=== PATIENT | female | born 1985 | race Caucasian/White ===

== ENCOUNTER 2017-08-11 12:50 | Outpatient (CLI) | payer BC, OTHER | END 2017-08-11 12:51 | disposition home or self-care (01) | LOC: DTY/OP 12:50 | PROVIDERS: ATTEND Specialist | DX: Z01.818 Encounter for other preprocedural examination (principal); E66.01 Morbid (severe) obesity due to excess calories | CPT/HCPCS: 97802 ==

== ENCOUNTER 2017-08-25 16:00 | Inpatient (IN) | payer OTHER ==
[2017-09-02] MEDS ORDERED: Bupivacaine HCl 0.5%/Epinephrine 1:200,000/PF 30 ml Vial ONE (06:34)
[2017-09-02] MEDS ORDERED: Bupivacaine/Epinephrine 0.25% 30 ML VIAL ONE ×2 (06:36→07:53)
[2017-09-02] MEDS ORDERED: Fentanyl 100 MCG/2 ML VIAL ONE ×2 (07:03→09:41)
[2017-09-02] MEDS ORDERED: Promethazine HCl 12.5 MG SUPP ONE (07:03)
[2017-09-02] MEDS ORDERED: HYDROmorphone 0.5 MG/0.5 ML SYRINGE ONE (07:03)
[2017-09-02] MEDS ORDERED: Midazolam HCl 2 mg/2 ml Vial ONE ×2 (07:03→07:12)
[2017-09-02] MEDS ORDERED: Promethazine HCl 25 MG/ML VIAL ONE (07:04)
[2017-09-02] MEDS ORDERED: Scopolamine 1.5 mg/72 hour Patch ONE (07:06)
[2017-09-02] MEDS ORDERED: Heparin 5,000 UNITS/ML VIAL ONE (07:06)
[2017-09-02] MEDS ORDERED: Ketorolac Tromethamine 30 MG/ML VIAL ONE (07:06)
[2017-09-02] MEDS ORDERED: cefOXitin 2 GM VIAL ONE (07:06)
[2017-09-02] MEDS ORDERED: Sodium Chloride 0.9% 100 ML ONE (07:06)
[2017-09-02] MEDS ORDERED: HYDROmorphone 2 MG/ML VIAL SLOW IVP PRN (09:02)
[2017-09-02] MEDS ORDERED: Promethazine HCl 25 MG/ML VIAL IM PRN (09:02)
[2017-09-02] MEDS ORDERED: Promethazine HCl 25 MG/ML VIAL SLOW IVP PRN (09:02)
[2017-09-02] MEDS ORDERED: Ondansetron HCl/PF 4 MG/2 ML Vial IVP PRN (09:02)
[2017-09-02] MEDS ORDERED: D5 1/2 NS w/20 mEq KCL 1,000 ML ONE (09:37)
[2017-09-02] MEDS ORDERED: Dextrose 50% Abboject 50 ML SYRINGE SLOW IVP PRN (10:41)
[2017-09-02] MEDS ORDERED: Dextrose 5% in Water 1,000 ML IV PRN (10:41)
[2017-09-02] MEDS ORDERED: Hydrocodone-Acetamin 15 ML UDCUP PO PRN (10:41)
[2017-09-02] MEDS ORDERED: hydrALAZINE 20 MG/ML VIAL SLOW IVP PRN (10:41)
[2017-09-02] MEDS ORDERED: diphenhydrAMINE 50 MG/ML VIAL IVP PRN (10:41)
[2017-09-02] MEDS: Ketorolac Tromethamine 30 MG/ML VIAL IVP SCH ×2 (11:37→17:56)
[2017-09-02] MEDS: D5 1/2 NS w/20 mEq KCL 1,000 ML IV SCH ×3 (11:38→17:58)
[2017-09-02 11:56] VITALS: BMI 37.0
[2017-09-02] MEDS: Ondansetron HCl/PF 4 MG/2 ML Vial IVP PRN (13:31)
[2017-09-02] MEDS: Morphine 4 MG/ML VIAL SLOW IVP PRN ×2 (17:57→22:07)
[2017-09-02] MEDS: Promethazine HCl 25 MG/ML VIAL IM PRN ×2 (17:58→22:07)
[2017-09-02] MEDS ORDERED: Enoxaparin Sodium 40 MG/0.4 ML SYRINGE SC SCH (21:00)
[2017-09-03] MEDS: Ketorolac Tromethamine 30 MG/ML VIAL IVP SCH ×3 (00:54→12:21)
[2017-09-03 05:54] LABS: #Basophils 0.1 thou/uL (0.0-0.2); #Lymphocytes 2.7 thou/uL (1.20-3.40); #Neutrophils 8.8 thou/uL (1.40-6.50); %Basophils 0.5 % (0.0-1.0); %Eosinophils 0.1 % (0.0-10.0); %Lymphocytes 21.3 % (21.0-51.0); %Neutrophils 70.2 % (42.0-75.0); Hemoglobin 12.4 g/dL (12.0-16.0); Mean Corpuscular HGB CONC 33.1 g/dL (32.0-36.0); Mean Corpuscular Hemoglobin 28.1 pg (27.0-31.0); Mean Corpuscular Volume 84.9 fL (78.0-98.0); Mean Platelet Volume 8.9 fL (7.4-10.4); Platelet Count 213 thou/uL (130-400); RBC Distribution Width 12.5 % (11.5-14.5); Red Blood Cell (RBC) Count 4.42 mill/uL (4.20-5.40); White Blood Cell (WBC) Count 12.5 thou/uL (4.8-10.8)
[2017-09-03 06:00] LABS: Anion Gap 11 mmol/L (10-20); BUN (Urea Nitrogen) 4 mg/dL (7.0-18.7); Calc. Creatinine Clearance 174 mL/min (70-130); Calcium 8.8 mg/dL (7.8-10.44); Carbon Dioxide 24 mmol/L (22-29); Chloride 109 mmol/L (98-107); Estimated GFR-MDRD Greater than 90; Glucose 111 mg/dL (70-105); Potassium 4.3 mmol/L (3.5-5.1); Sodium 140 mmol/L (136-145)
[2017-09-03] MEDS: Ondansetron HCl/PF 4 MG/2 ML Vial IVP PRN (07:24)
[2017-09-03] MEDS ORDERED: Pantoprazole 40 MG VIAL IVP SCH (09:00)
--- NOTE | 2017-09-03 09:45 | OP ---
DATE OF PROCEDURE: 09/02/2017 PREOPERATIVE DIAGNOSIS: Morbid obesity. POSTOPERATIVE DIAGNOSIS: Morbid obesity. PROCEDURE PERFORMED: Laparoscopic sleeve gastrectomy. SURGEON: Diego Camargo M.D. ANESTHESIA: General endotracheal. INDICATIONS: The patient is a 32-year-old morbidly obese white female. She has undergone preoperati ve evaluation and education and presents at this time for sleeve gastrectomy. DESCRIPTION OF OPERATION: Informed consent was obtained. The patient was taken to the operating mekhi m where general endotracheal anesthesia obtained with the patient in supine position. Abdomen was pr epped with ChloraPrep and draped in sterile fashion. Local anesthetic was infiltrated and 5 mm supra umbilical incision was created through which Veress needle was passed to the peritoneal cavity and pn eumoperitoneum established using carbon dioxide up to a pressure of 15 mmHg. A 5 mm trocar port was passed through this same incision. Laparoscopic camera was passed through this port. Under direct v ision, 4 additional ports were placed including bilateral 5 mm subcostal ports, a 12 mm right paramed joelle port and a 15 mm left paramedian port. A 5 mm epigastric incision was created through which Nathansen retractor was passed into the abdomina l cavity and used to retract the left lobe of the liver. The patient was placed into reverse [place] position. The ViSiGi device was advanced within the stomach and used to decompress this. The pylorus was ident ified and beginning 4 cm proximal to the pylorus, the omentum and vascular tissue along the greater c urvature was divided using the LigaSure in an ascending fashion up to the angle of His. All posterio r adhesions were mobilized. The short gastric vessels were carefully divided and then hemostasis was maintained using the LigaSure. Once this was completely mobilized, the ViSiGi was carefully positio mario at the level of the pylorus and placed to suction, which was clearly defining the lesser curvatur e of the stomach. The gastrectomy was then performed using a series of fires of the [place] stapler using a green load followed by a gold load and a series of blue loads until completion of the gastrectomy. The ViSiGi a long the lesser curvature was used as a size 36 bougie to guide in the gastric division. Care was ta ebony to avoid narrowing the incisura or the gastroesophageal junction. The integrity of the staple line was then assessed by insufflating gas through the ViSiGi while irrig ating along the staple line. There was no evidence of an air leak. There was no evidence of bleedin g along the staple line. The resected stomach was then removed through the 15 mm port and the fascia was closed with 0 Vicryl suture using a GraNee needle. I then closed the 12 mm port also using the GraNee needle and 0 Vicryl suture. The Nathansen retractor was removed. All ports and instruments were removed under direct v ision. All irrigant was aspirated. Pneumoperitoneum was carefully evacuated. Quarter percent Vasyl ine with epinephrine was infiltrated into each port site. Skin edges approximated with 4-0 Monocryl subcuticular suture. Dermabond was placed externally. There were no complications. The patient francisco erated the procedure well and was taken to recovery room in stable condition. FINDINGS: The patient had no significant intra-abdominal abnormalities. The operation was performed with essentially no blood loss. The leak test was negative. The patient was stable throughout the operation. She was taken to recovery in stable condition.
[2017-09-03 11:27] VITALS: BP 147/88; TEMP 97.7
[2017-09-03] MEDS: D5 1/2 NS w/20 mEq KCL 1,000 ML IV SCH (13:10)
== END 2017-09-03 14:22 | disposition home or self-care (01) | DRG 621 ==
LOC: SURG A 09-02 06:28 → SURG B 09-02 09:43
PROVIDERS: ADMIT Specialist; ATTEND Specialist
PROC: 0DB64Z3 Excision of Stomach, Percutaneous Endoscopic Approach, Vertical (ICD-10-PCS; principal; 2017-09-02)
DX: E66.01 Morbid (severe) obesity due to excess calories (principal); Z68.35 Body mass index [BMI] 35.0-35.9, adult; E78.5 Hyperlipidemia, unspecified; J45.909 Unspecified asthma, uncomplicated
CPT/HCPCS: 36415; 80048; 85025; 88307; 88312; C9113; J0131; J0670; J0694; J1170; J1644; J1650; J1885; J2250; J2270; J2405; J2550; J3010; J7050

== ENCOUNTER 2017-08-25 16:32 | Outpatient (CLI) | payer BC, OTHER ==
[2017-08-25 18:11] LABS: BHCG - Serum Negative (NEGATIVE); Pregs Control Background? CLEAR/WHITE (CLR/WHITE); Pregs Control Bar Appear? YES (CONTROL BAR)
== END 2017-08-25 16:33 | disposition home or self-care (01) ==
LOC: LABBT 16:32
PROVIDERS: ATTEND Specialist
DX: Z01.818 Encounter for other preprocedural examination (principal); E66.01 Morbid (severe) obesity due to excess calories
CPT/HCPCS: 84703

== ENCOUNTER 2020-12-10 07:08 | Outpatient (CLI) | payer BC ==
[2020-12-10] MEDS ORDERED: Magnevist 469MG/ML 20 ML VIAL ONE (09:48)
== END 2020-12-10 07:09 | disposition home or self-care (01) ==
LOC: BICMRI 07:08
PROVIDERS: ATTEND Specialist
DX: Z48.815 Encounter for surgical aftercare following surgery on the digestive system (principal); K76.89 Other specified diseases of liver; Z98.84 Bariatric surgery status
CPT/HCPCS: 74183; A9579

== ENCOUNTER 2020-12-18 10:31 | Outpatient (CLI) | payer BC ==
[2020-12-18 11:23] LABS: #Basophils 0.1 10x3/uL (0.0-0.2); #Eosinphils 0.1 10x3/uL (0.0-0.5); #Monocytes 0.5 10x3/uL (0.0-1.1); #Neutrophils 3.2 10x3/uL (1.5-8.4); %Basophils 0.8 % (0.0-2.0); %Eosinophils 2.1 % (0.0-6.0); %Lymphocytes 37.7 % (18.0-47.0); %Monocytes 7.6 % (0.0-10.0); %Neutrophils 51.5 % (40.0-75.0); Hemoglobin 13.2 g/dL (12.0-15.5); Mean Corpuscular HGB CONC 33.4 g/dL (32.0-36.0); Mean Corpuscular Hemoglobin 29.9 pg (27.0-33.0); Mean Corpuscular Volume 89.6 fl (81.6-98.3); Mean Platelet Volume 11.2 fl (7.4-10.4); Platelet Count 220 10x3/uL (150-450); RBC Distribution Width 12.3 % (11.5-14.5); Red Blood Cell (RBC) Count 4.41 10x6/uL (3.90-5.03); White Blood Cell (WBC) Count 6.2 10x3/uL (3.5-10.5)
[2020-12-18 11:47] LABS: BHCG - Serum Negative (NEGATIVE); Pregs Control Background? CLEAR/WHITE (CLR/WHITE); Pregs Control Bar Appear? YES (CONTROL BAR)
[2020-12-18 12:00] LABS: ALT (SGPT) 17 U/L (8-55); AST (SGOT) 14 U/L (5-34); Albumin 4.6 g/dL (3.5-5.0); Alkaline Phosphatase 58 U/L (40-110); Anion Gap 12 mmol/L (10-20); BUN (Urea Nitrogen) 12 mg/dL (7.0-18.7); Bilirubin, Total 0.6 mg/dL (0.2-1.2); Calc. Creatinine Clearance 0 mL/min (70-130); Calcium 9.7 mg/dL (7.8-10.44); Carbon Dioxide 28 mmol/L (22-29); Chloride 102 mmol/L (98-107); Globulin 2.6 g/dL (2.4-3.5); Glucose 94 mg/dL (70-105); Potassium 4.3 mmol/L (3.5-5.1); Protein, Total 7.2 g/dL (6.0-8.3); Sodium 138 mmol/L (136-145)
[2020-12-18 17:08] LABS: SARS-CoV-2 PCR by NAA Not Detected (NotDetected)
== END 2020-12-18 10:32 | disposition home or self-care (01) ==
LOC: LABBT 10:31
PROVIDERS: ATTEND Specialist
DX: Z01.812 Encounter for preprocedural laboratory examination (principal); K80.20 Calculus of gallbladder without cholecystitis without obstruction; Z20.822 Contact with and (suspected) exposure to COVID-19
CPT/HCPCS: 80053; 84703; 85025; U0003; U0005

== ENCOUNTER 2020-12-23 12:02 | Day surgery (SDC) | payer BC ==
[2020-12-20 11:28] VITALS: BMI 25.0
[2020-12-23] MEDS ORDERED: Fentanyl 100 MCG/2 ML VIAL ONE (12:05)
[2020-12-23] MEDS ORDERED: Midazolam HCl 2 mg/2 ml Vial ONE (12:05)
[2020-12-23] MEDS ORDERED: Acetaminophen 500 MG TAB ONE (12:22)
[2020-12-23] MEDS ORDERED: Ketorolac Tromethamine 30 MG/ML VIAL ONE (12:56)
[2020-12-23] MEDS ORDERED: Bupivacaine PF 0.5% 30 ML VIAL ONE (13:29)
[2020-12-23] MEDS ORDERED: Lidocaine 1% w/Epinephrine 1:100K 20 ML VIAL ONE (13:29)
[2020-12-23] MEDS ORDERED: Bupivacaine 0.25% HCL 30 ML VIAL ONE (13:29)
[2020-12-23] MEDS ORDERED: Rocuronium Bromide 10 MG/ML (10ML VIAL) ONE (13:51)
[2020-12-23] MEDS ORDERED: Lidocaine 1% PF 5 ML VIAL ONE (13:51)
[2020-12-23] MEDS ORDERED: PROPOFOL 200 MG/20 ML VIAL ONE (13:51)
[2020-12-23] MEDS ORDERED: Glycopyrrolate 0.2 MG/ML 5 ML SYRINGE ONE (13:51)
[2020-12-23] MEDS ORDERED: Ondansetron PF 4 MG/2 ML Vial ONE (13:51)
[2020-12-23] MEDS ORDERED: Dexamethasone 20 MG/5 ML VIAL ONE (13:51)
[2020-12-23] MEDS ORDERED: SUGAMMADEX SODIUM 200 MG/2 ML VIAL ONE (14:55)
[2020-12-23] MEDS ORDERED: HYDROcodone/Acetaminophen 5/325 mg Tablet ONE (16:37)
== END 2020-12-23 18:15 | disposition home or self-care (01) ==
LOC: SDC 12:02
PROVIDERS: ATTEND Specialist
PROC: 0FT44ZZ Resection of Gallbladder, Percutaneous Endoscopic Approach (ICD-10-PCS; principal; 2020-12-23)
DX: K80.10 Calculus of gallbladder with chronic cholecystitis without obstruction (principal); K82.8 Other specified diseases of gallbladder; J45.909 Unspecified asthma, uncomplicated; Z88.1 Allergy status to other antibiotic agents; Z79.52 Long term (current) use of systemic steroids; Z79.899 Other long term (current) drug therapy; Z98.84 Bariatric surgery status; Z98.890 Other specified postprocedural states
CPT/HCPCS: 88304; J0690; J1100; J1885; J2250; J2405; J2704; J3010; S0020